=== PATIENT | female | born 1980 | race Caucasian/White ===

== ENCOUNTER 2020-01-06 15:10 | Emergency (ER) | payer OTHER, SELFPAY ==
[2020-01-06 15:11] VITALS: BP 106/63; PULSE 74; RESP 16; TEMP 35.8; O2SAT 98; BMI 22.3
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
[2020-01-06] MEDS: Ibuprofen 600 MG Tablet PO (15:33)
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
[2020-01-06 16:56] VITALS: RESP 17
== END 2020-01-06 16:56 | disposition home or self-care (01) ==
LOC: ED 16:12
PROVIDERS: Emergency Provider Emergency Medicine
DX: S16.1XXA Strain of muscle, fascia and tendon at neck level, initial encounter (principal); S39.012A Strain of muscle, fascia and tendon of lower back, initial encounter; S20.219A Contusion of unspecified front wall of thorax, initial encounter; V89.2XXA Person injured in unspecified motor-vehicle accident, traffic, initial encounter; Y93.9 Activity, unspecified; Y92.9 Unspecified place or not applicable; Y99.9 Unspecified external cause status; G43.909 Migraine, unspecified, not intractable, without status migrainosus; J45.909 Unspecified asthma, uncomplicated; Z79.899 Other long term (current) drug therapy
CPT/HCPCS: 71046; 72040; 72100; 99283